=== PATIENT | female | born 1965 | race Caucasian/White ===

== ENCOUNTER → 2016-10-02 | Outpatient (CLI) | payer OTHER ==
[~2016-10-02] MED LIST: EFIN4SOL TP; IOHEXOL 240 MG/ML 50ML VIAL. ONE; IOHEXOL 300 MG/ML 75 ML VIAL. IV ONE; LEVO25TA4 PO; MULT1TAB97 PO; VENL37.5 PO
--- NOTE | 2016-10-02 09:27 | RAD ---
Indication left lower quadrant pain for several months. Axial images through the abdomen and pelvis were obtained. Both oral and IV contrast were administered. Approximately 75 cc of Omnipaque 300 was administered intravenously. No prior CT imaging of the abdomen or pelvis is available. The lung bases are clear. A focal mass in the liver is not seen. There is suggested mild periportal edema. This is a nonspecific finding but can be seen in patients with hepatic disease. Clinical correlation advised. The spleen appears unremarkable. The gallbladder appears grossly normal. No adrenal or renal pathology is seen. No pancreatic abnormality is seen. Mass inflammatory process or acute finding in the abdomen is not seen. In the pelvis no focal mass or inflammatory process is seen. There is suggested mild, diffuse, thickening of the urinary bladder wall. Clinical correlation advised. Cystitis could account for the appearance. IMPRESSION: No acute finding seen in the abdomen or pelvis. Suspect mild periportal edema. See above discussion. Mild thickening of the urinary bladder. Clinical correlation advised. Cystitis could account for the appearance. PQRS Compliance Statement: One or more of the following individualized dose reduction techniques were utilized for this examination: 1. Automated exposure control 2. Adjustment of the mA and/or kV according to patient size 3. Use of iterative reconstruction technique
== END | disposition home or self-care (01) ==
LOC: CT 07:59
PROVIDERS: ATTEND Nurse Practitioner Family
DX: R10.32 Left lower quadrant pain (principal); R91.8 Other nonspecific abnormal finding of lung field
CPT/HCPCS: 74177; Q9966; Q9967